=== PATIENT | female | born 2000 | race Caucasian/White ===

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

== ENCOUNTER 2021-04-20 00:57 | Emergency (ER) | payer BC ==
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
== END 2021-04-20 02:18 | disposition home or self-care (01) ==
LOC: MW.ED 00:57
DX: O9A.212 Injury, poisoning and certain other consequences of external causes complicating pregnancy, second trimester (principal); S09.93XA Unspecified injury of face, initial encounter; Z88.0 Allergy status to penicillin; Z88.8 Allergy status to other drugs, medicaments and biological substances; Z3A.15 15 weeks gestation of pregnancy; Y04.0XXA Assault by unarmed brawl or fight, initial encounter
CPT/HCPCS: 99283

== ENCOUNTER 2024-04-08 09:35 | Emergency (ER) | payer BC | END 2024-04-08 12:17 | disposition home or self-care (01) | LOC: MW.ED 09:35 | DX: M79.672 Pain in left foot (principal); Z75.8 Other problems related to medical facilities and other health care; Z88.0 Allergy status to penicillin; Z79.899 Other long term (current) drug therapy | CPT/HCPCS: 73610-26-LT; 73610-LT; 73630-26-LT; 73630-LT; 99283 ==

== ENCOUNTER 2024-08-20 15:09 | Emergency (ER) | payer BC ==
[2024-08-20] MEDS: LORazepam 1 MG Tab PO ONE (16:40)
[2024-08-20 16:56] LABS: BASOPHILS ABSOLUTE AUTO 0.01 K/uL (0.00-0.20); BASOPHILS PERCENT AUTO 0.1 % (0.0-1.0); EOSINOPHILS ABSOLUTE AUTO 0.06 K/uL (0.00-0.45); EOSINOPHILS PERCENT AUTO 0.7 % (0.0-6.0); HEMATOCRIT 40.8 % (37.0-47.0); HEMOGLOBIN 14.3 g/dL (12.0-16.0); IMMATURE GRAN ABSOLUTE AUTO 0.02 K/uL (0.00-0.05); IMMATURE GRAN PERCENT AUTO 0.2 % (0.0-0.4); LYMPHOCYTES ABSOLUTE AUTO 2.56 K/uL (1.00-4.80); LYMPHOCYTES PERCENT AUTO 28.9 % (24.0-44.0); MEAN CORPUSCULAR HEMOGLOBIN 29.5 pg (28.0-32.0); MEAN CORPUSCULAR VOLUME 84.3 fL (83.0-99.0); MEAN PLATELET VOLUME 10.2 fL (9.4-12.3); MONOCYTES ABSOLUTE AUTO 0.44 K/uL (0.00-0.80); NEUTROPHILS ABSOLUTE AUTO 5.77 K/uL (1.80-7.70); NEUTROPHILS PERCENT AUTO 65.1 % (41.0-71.0); PLATELET COUNT,PLT 287 K/uL (150-400); RED BLOOD CELL COUNT 4.84 M/uL (4.10-5.30); WHITE BLOOD CELL COUNT,WBC 8.86 K/uL (3.9-11.3)
[2024-08-20 17:39] LABS: A/G RATIO 1.1 (0.9-1.6); ALBUMIN 4.1 g/dL (3.4-5.0); BILIRUBIN TOTAL 0.3 mg/dL (0.2-1.0); CALCIUM 9.3 mg/dL (8.5-10.1); CARBON DIOXIDE,CO2 25.7 mmol/L (21.0-32.0); CREATININE 0.8 mg/dL (0.6-1.0); EST CRCL DRUG DOSING (CG) 93.64 mL/min; POTASSIUM,K 3.6 mmol/L (3.5-5.1); PROTEIN TOTAL,TP 7.8 g/dL (6.4-8.2); TSH ULTRASENSITIVE 1.69 uIU/mL (0.36-3.74)
== END 2024-08-20 17:50 | disposition home or self-care (01) ==
LOC: MW.ED 15:09
DX: R00.2 Palpitations (principal); Z88.0 Allergy status to penicillin; Z88.8 Allergy status to other drugs, medicaments and biological substances; Z75.8 Other problems related to medical facilities and other health care
CPT/HCPCS: 36415; 71045; 80053; 84443; 85025; 93005; 99285; A9270; 93010; 99284